=== PATIENT | male | born 1985 | race African-American/Black ===

== ENCOUNTER 2019-10-07 11:50 | Emergency (ER) | payer MEDICAID ==
[~2019-10-07] VITALS: Ht 177.8 cm; Wt 98.0 kg
[2019-10-07 11:57] VITALS: BP 152/85
[2019-10-07] MEDS ORDERED: CEPHALEXIN 250MG CAPSULE PO ONE (12:15)
== END 2019-10-07 14:30 | disposition home or self-care (01) ==
LOC: ER 14:27
DX: T81.49XA Infection following a procedure, other surgical site, initial encounter (principal); R62.50 Unspecified lack of expected normal physiological development in childhood; Z86.69 Personal history of other diseases of the nervous system and sense organs
CPT/HCPCS: 87070; 87077; 87205; 99283; Z7610